=== PATIENT | female | born 1990 | race Caucasian/White ===

== ENCOUNTER → 2016-06-30 | Outpatient (CLI) | payer OTHER ==
--- NOTE | 2016-06-30 12:51 | DX ---
Chest, PA and Lateral History: Fatigue, malaise, chest pain, cough, chills Findings: Lungs are clear, without focal infiltrate or consolidation. Heart size is normal. There is no adenopathy or mass lesion. There is no pleural effusion or pneumothorax. Bones are unremarkable fo r age. Impression: Normal. No pneumonia identified.
== END ==
LOC: BMCIMAGING 12:28
PROVIDERS: ATTEND Family Medicine
DX: R53.81 Other malaise (principal); R07.9 Chest pain, unspecified; R05 Cough; R53.83 Other fatigue; R68.83 Chills (without fever)

== ENCOUNTER → 2016-12-15 | Outpatient (CLI) | payer OTHER | LOC: FIMAGING 14:52 | PROVIDERS: ATTEND Registered Nurse General Practice | DX: N83.01 Follicular cyst of right ovary (principal); Z97.5 Presence of (intrauterine) contraceptive device ==

== ENCOUNTER → 2017-01-04 | Outpatient (CLI) | payer OTHER | LOC: FIMAGING 11:09 | PROVIDERS: ATTEND Registered Nurse General Practice | DX: N83.201 Unspecified ovarian cyst, right side (principal) ==

== ENCOUNTER → 2017-07-16 | Outpatient (CLI) | payer OTHER | LOC: BMCIMAGING 08:38 | PROVIDERS: ATTEND Emergency Medicine | DX: S60.871A Other superficial bite of right wrist, initial encounter (principal); M79.89 Other specified soft tissue disorders ==